=== PATIENT | male | born 1980 | race Caucasian/White ===

== ENCOUNTER 2017-01-23 03:58 | Emergency (ER) | payer SELFPAY ==
[~2017-01-23] VITALS: Ht 162.6 cm; Wt 90.9 kg
[2017-01-23 04:04] VITALS: BP 94/66
== END 2017-01-23 04:41 | disposition left against medical advice (07) ==
LOC: EMS 04:00
DX: F10.129 Alcohol abuse with intoxication, unspecified (principal)
CPT/HCPCS: 99283